=== PATIENT | female | born 2000 | race Caucasian/White ===

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

== ENCOUNTER 2019-03-10 06:05 | Outpatient (CLI) | payer OTHER ==
[2019-03-10 12:33] LABS: CANDIDA GROUP DNA NEGATIVE (NEGATIVE); CANDIDA KRUSEI DNA NEGATIVE (NEGATIVE); TRICHOMONAS VAGINALIS DNA NEGATIVE (NEGATIVE)
== END 2019-03-10 06:45 | disposition home or self-care (01) ==
LOC: LAB.R 06:05
PROVIDERS: ATTEND Nurse Practitioner Obstetrics & Gynecology
DX: Z11.3 Encounter for screening for infections with a predominantly sexual mode of transmission (principal)
CPT/HCPCS: 87661; 87801

== ENCOUNTER 2020-06-16 11:45 | Outpatient (CLI) | payer OTHER | END 2020-06-16 11:46 | disposition home or self-care (01) | LOC: COV 11:45 | PROVIDERS: ATTEND Family Medicine | DX: R05 Cough (principal); J02.9 Acute pharyngitis, unspecified; R09.81 Nasal congestion; R11.2 Nausea with vomiting, unspecified; Z20.828 Contact with and (suspected) exposure to other viral communicable diseases ==

== ENCOUNTER 2020-07-17 21:06 | Outpatient (CLI) | payer OTHER | END 2020-07-17 21:07 | disposition home or self-care (01) | LOC: COV 21:06 | PROVIDERS: ATTEND Family Medicine | DX: Z20.828 Contact with and (suspected) exposure to other viral communicable diseases (principal) ==

== ENCOUNTER 2021-07-13 17:22 | Outpatient (CLI) | payer OTHER ==
--- NOTE | 2021-07-13 19:05 | Ultrasound Report ---
PROCEDURE: Head or Neck Soft Tissue INDICATIONS: NECK MASS, CYST TECHNIQUE: Real time scanning was performed of the neck region of interest, with image documentation . COMPARISON: None. FINDINGS: Focused ultrasound examination of left lower neck/upper shoulder area at patient's reported area of palpable lump shows small and benign-appearing lymph nodes in subcutaneous drainage soft tis poncho measures less than 5 mm in short axis diameter. No discrete soft tissue mass or fluid collection is seen. IMPRESSION: Benign-appearing lymph nodes seen in left lower neck/shoulder soft tissue. No soft tissue mass or flu id collection is seen. Reviewed by: Jayesh Gill MD on 07/13/2021 7:03 PM PDT Approved by: Jayesh Gill MD on 07/13/2021 7:03 PM PDT Station ID: [id number]
== END 2021-07-13 17:23 | disposition home or self-care (01) ==
LOC: DI 17:22
PROVIDERS: ATTEND Nurse Practitioner Obstetrics & Gynecology
DX: R22.1 Localized swelling, mass and lump, neck (principal)

== ENCOUNTER 2023-05-27 10:43 | Outpatient (CLI) | payer OTHER ==
--- NOTE | 2023-05-27 16:13 | Ultrasound Report ---
PROCEDURE: Duplex Ext Veins Left INDICATIONS: LEFT CALF PAIN, SWELLING TECHNIQUE: Real-time imaging, as well as color and pulse Doppler interrogation, were performed of the lower extr emity deep veins from the inguinal ligament to the popliteal fossa. Attempted visualization of the ca lf veins was performed. COMPARISON: None. FINDINGS: The deep veins are normally compressible, and free of intraluminal thrombus. Color and pu lse Doppler demonstrate normal phasic intraluminal flow. There is normal augmentation response to di stal compression maneuver. IMPRESSION: No evidence of left lower extremity DVT. Reviewed by: Hector Villa MD on 05/27/2023 4:12 PM PDT Approved by: Hector Villa MD on 05/27/2023 4:12 PM PDT Station ID: [id number]
== END 2023-05-27 10:44 | disposition home or self-care (01) ==
LOC: DI 10:43
PROVIDERS: ATTEND Registered Nurse
DX: M79.662 Pain in left lower leg (principal); R22.42 Localized swelling, mass and lump, left lower limb

== ENCOUNTER 2023-07-02 08:00 | Outpatient (CLI) | payer OTHER ==
[2023-07-03 01:50] LABS: BACTERIAL VAGINOSIS DNA NEGATIVE (NEGATIVE); CANDIDA GLABRATA DNA NEGATIVE (NEGATIVE); CANDIDA GROUP DNA NEGATIVE (NEGATIVE); CANDIDA KRUSEI DNA NEGATIVE (NEGATIVE); TRICHOMONAS VAGINALIS DNA NEGATIVE (NEGATIVE)
== END 2023-07-02 23:59 | disposition home or self-care (01) ==
LOC: LAB.N 08:00
PROVIDERS: ATTEND Registered Nurse
DX: R30.0 Dysuria (principal)
CPT/HCPCS: 81514; 87086